=== PATIENT | female | born 1950 | race Two or more races ===

== ENCOUNTER 2024-11-18 08:02 | Inpatient (IN) | payer OTHER ==
[~2024-11-18] VITALS: Ht 157.5 cm; Wt 55.3 kg
[~2024-11-18 08:02] MED LIST: JANUMET XR 50-1 EACH
--- NOTE | 2024-11-18 08:13 | NUR ---
PACIENTE ALERTA Y ORIENTADA X3 ACOMPADA DE PERSONAL DE AMBULANCIA LA CUAL REFIERE DOLOR ABDOMINAL AL TACTO, VOMITOS DESDE EL ИРИНА DE SINA, EN EL ИРИНА DE HOY VOMITOS X3. LA MISMA INDICA SE LE REALIZO BLOQUEO EN PIERNA DERECHA RECIENTEMENTE.
[2024-11-18] MEDS ORDERED: PANTOPRAZOLE SODIUM 40 MG/VIAL VIAL IV ONE (08:45)
[2024-11-18 09:09] LABS: HEMATOCRIT 37.8 % (36.0-45.00); HEMOGLOBIN 12.8 g/dL (12.0-15.00); MEAN CELL VOLUME 82.3 fL (80.00-100.00); PLATELET COUNT 179 K/uL (150-450); RED BLOOD COUNT 4.59 M/uL (4.00-6.00); RED CELL DISTRIBUTION WIDTH 13.4 % (11.5-14.5)
[2024-11-18 09:33] LABS: INR 1.13; PARTIAL THROMBOPLASTIN TIME 26.4 SECONDS (22.0-34.0); PROTHROMBIN TIME 12.2 SECONDS (9.0-11.5)
[2024-11-18 09:38] LABS: ALBUMIN 3.7 gm/dL (3.4-5.0); BILIRUBIN TOTAL 0.51 mg/dL (0.3-1.2); CALCIUM 9.6 mg/dL (8.5-10.1); CREATININE SERUM 0.59 mg/dL (0.55-1.02); GFR 99.1; GLOBULINA 3.7 G/DL (2.4-3.5); POTASSIUM 4.81 mEq/L (3.5-5.1); TOTAL PROTEIN 7.4 gm/dL (6.4-8.2)
[2024-11-18 09:39] LABS: URINE APPEARANCE Clear; URINE BILIRRUBIN Negative (NEGATIVE); URINE BLOOD Negative; URINE COLOR Yellow; URINE GLUCOSE Negative (NEGATIVE); URINE KETONE Negative (NEGATIVE); URINE LEUKOCYTE Negative; URINE NITRATE Negative; URINE PROTEIN Negative (NEGATIVE); URINE UROBILINOGEN 0.2 E.U./dl
[2024-11-18 09:42] LABS: URINE BACTERIA 12.2 uL (0.0-1933); URINE EPITHELIAL CELLS 6.9 uL (0.0-38.8)
[2024-11-18] MEDS ORDERED: NITROGLYCERIN IN 5 % DEXTROSE 250 ML IV SCH ×2 (09:56→19:15)
[2024-11-18] MEDS ORDERED: NITROGLYCERIN IN 5 % DEXTROSE 50 MG/250 ML BOTTLE IV ONE (10:03)
--- NOTE | 2024-11-18 10:26 | NUR ---
SE UBICA A PACIENTE EN CAMA #2 DE AREA DE CRITICO, SE CONECTA A MONITOR CARDIACO Y OXIEMTRIA DE PULSO CONTINUA. SE REALIZA SEGUNDA VENOPUNCION A PACIENTE Y SE ADMINISTRA MEDICAMENTO STEPHANY ORDEN MEDICA. SE COLOCA AVALOS CATETER BAJO MEDIDAS ESTERILES Y SE COLECTA U/C Y U/A. SE MANTIENE A PACIENTE BAJO OBSERVACION POR CAMBIOS A [place] CONDICION.
[2024-11-18 10:36] LABS: URINE CAST 0.29 uL (0.0-1.40); URINE WBC 1.5 uL (0.0-23.2)
[2024-11-18 11:33] LABS: ABG PH 7.446 (7.35-7.45); ABG PO2 99.8 mmHg (80-100); ABG pCO2 37.3 mmHg (35-45); BASE EXCESS 1.4 mmol/l; BICARBONATE 25.2 mmol/l (23-25); Tco2 26.3 mmol/l
[2024-11-18 11:40] LABS: allen test SATISFACTORY; o2 21 %; puncture site RADIAL RIGHT
--- NOTE | 2024-11-18 15:00 | NUR ---
SE RECIBE PACIENTE FEMENINA ALERTA Y ORIENTADA X3, EN AREA DE CRITICO EN LA CAMA #2 CON BARANDAS ELEVADAS. CONECTADA A MONITOR CARDIACO, OXIEMTRIA DE PULSO Y CANULA NASAL A 3LT/MIN. AREA DE VENOPUNCION EN EL BRAZO DERECHO CANALIZADA CON ANGIO #20 Y SE LE COLOCA H/L Y SEGUNDA VENOPUNCION EN EL BRAZO BLANCA CON ANGIO #22 Y CON H/L PATENTE AMILCAR DE EDEMA Y ENROJECIMIENTO. SE LE MIDEN LOS SIGNOS VITALES Y PENDIENTE LA CONSULTA CON Y CARDIOLOGO . SE OBSERVA AVALOS CON ORINA AMARILLO EVARISTO. Y SE OBSERVA POR CAMBIOS.
[2024-11-18] MEDS ORDERED: KETOROLAC TROMETHAMINE 30 MG VIAL ONE (15:26)
[2024-11-18] MEDS ORDERED: KETOROLAC TROMETHAMINE 30 MG VIAL IV STA (15:29)
--- NOTE | 2024-11-18 15:34 | NUR ---
SE LE ORIENTA A PACIENTE SOBRE LA ORDEN MEDICA, REFIERE ENTENDER LAS MISMAS. SE LE ADMINISTRA EL MEDICAMENTO STEPHANY LA ORDEN.
[2024-11-18] MEDS ORDERED: ACETAMINOPHEN 325 MG TABLET PO PRN (19:15)
[2024-11-18] MEDS ORDERED: INSULIN LISPRO 1,000 UNIT/10 ML UNITS SUBCUTANEO PRN (19:15)
[2024-11-18] MEDS ORDERED: ONDANSETRON HCL 4 MG in 0.9 % SODIUM CHLORIDE 50 ML IV PRN (19:15)
[2024-11-18] MEDS ORDERED: DEXTROSE 50 % IN WATER 0.5 G/ML DISP.SYRIN IV PRN (19:15)
[2024-11-18] MEDS ORDERED: MORPHINE SULFATE 2 MG/ML CARTRIDGE IV ONE (19:15)
[2024-11-18 19:44] VITALS: BP 150/75
[2024-11-18 23:14] VITALS: BP 129/77; O2SAT 97
[2024-11-19 01:53] VITALS: BP 103/67; O2SAT 96
[2024-11-19 05:37] VITALS: O2SAT 99
[2024-11-19 07:08] LABS: CHOL HDL RATIO 2.5 (0-5.0); TSH 0.558 uIU/mL (0.358-3.74)
[2024-11-19] MEDS ORDERED: HALOPERIDOL LACTATE 5 MG/ML AMPUL IV PRN (07:45)
[2024-11-19] MEDS ORDERED: CLOPIDOGREL BISULFATE 75 MG TABLET PO SCH (09:00)
[2024-11-19] MEDS ORDERED: LOSARTAN POTASSIUM 25 MG TABLET PO SCH (09:00)
[2024-11-19] MEDS ORDERED: METOPROLOL SUCCINATE 25 MG TAB.SR.24H PO SCH (09:00)
[2024-11-19 09:22] VITALS: BP 120/77; O2SAT 96
[2024-11-19] MEDS ORDERED: ATORVASTATIN CALCIUM 40 MG TABLET PO SCH (17:00)
[2024-11-19 17:55] VITALS: O2SAT 99
[2024-11-19 18:48] VITALS: BP 137/74
[2024-11-19 20:43] VITALS: O2SAT 99
[2024-11-19] MEDS ORDERED: OxyCODONE HCL/APAP UD (PERCOCET) PO SCH (21:24)
[2024-11-20] VITALS (8 sets, daily range): BP systolic 122–133; BP diastolic 73–95; O2SAT 96–100
[2024-11-21] VITALS: O2SAT 98
[2024-11-21 01:42] VITALS: BP 146/84; O2SAT 97
[2024-11-21 08:37] VITALS: BP 147/75
[2024-11-21 10:25] VITALS: O2SAT 97
[2024-11-21 18:25] VITALS: BP 161/75
== END 2024-11-21 23:30 | disposition home or self-care (01) | DRG 281 ==
LOC: ER 08:02 → MEDJ 19:00
PROVIDERS: General Practice; ADMIT Internal Medicine; ATTEND Internal Medicine
PROC: B246ZZZ Ultrasonography of Right and Left Heart (ICD-10-PCS; principal; 2024-11-18)
PROC: 4A12X4Z Monitoring of Cardiac Electrical Activity, External Approach (ICD-10-PCS; 2024-11-18)
DX: I21.A1 Myocardial infarction type 2 (principal); C34.90 Malignant neoplasm of unspecified part of unspecified bronchus or lung; C79.31 Secondary malignant neoplasm of brain; G89.3 Neoplasm related pain (acute) (chronic); R07.89 Other chest pain; M79.662 Pain in left lower leg; M79.661 Pain in right lower leg; E11.9 Type 2 diabetes mellitus without complications; Z79.84 Long term (current) use of oral hypoglycemic drugs